=== PATIENT | female | born 1975 | race Caucasian/White ===

== ENCOUNTER → 2016-09-18 | Outpatient (CLI) | payer OTHER | LOC: BMCIMAGING 09:26 | PROVIDERS: ATTEND Internal Medicine Rheumatology | DX: Z13.820 Encounter for screening for osteoporosis (principal); Z79.52 Long term (current) use of systemic steroids ==

== ENCOUNTER 2016-12-30 18:05 | Emergency (ER) | payer OTHER ==
[2016-12-30 18:20] VITALS: TEMP 98.6
[2016-12-30 19:01] LABS: % IMMATURE GRANULYOCYTES 0.2 % (0.0-1.1); ABSOLUTE IMMATURE GRANULOCYTES 0.02 10^3/uL (0.00-0.10); ADD DIFF? NO; ADD MORPH? NO; ADD SCAN? NO; ATYPICAL LYMPHOCYTE FLAG 20 (0-99); FRAGMENT RBC FLAG 0 (0-99); HEMATOCRIT 43.1 % (38.0-47.0); HEMOGLOBIN 14.6 g/dL (12.6-16.3); LEFT SHIFT FLG 0 (0-99); LIPEMIA HEMOLYSIS FLAG 90 (0-99); MEAN CELL HEMOGLOBIN 32.7 pg (27.9-34.1); MEAN CELL HEMOGLOBIN CONCENTR. 33.9 g/dL (32.4-36.7); MEAN CELL VOLUME 96.4 fL (81.5-99.8); PLATELET CLUMPS FLAG 0 (0-99); PLATELET COUNT 183 10^3/uL (150-400); RED BLOOD CELL COUNT 4.47 10^6/uL (4.18-5.33); RED CELL DISTRIBUTION WIDTH 13.2 % (11.5-15.2)
--- NOTE | 2016-12-30 19:15 | EDPHY ---
HPI/HX/ROS/PE/MDM Narrative: CHIEF COMPLAINT: Increased anxiety and depression HPI: The patient is a 41-year-old female who complains of worsening anxiety and depression. The patient gave 22 months ago. Since giving the patient has been struggling with post- depression and has been seeing a post- wellness therapist for this. She has a history of autoimmune disease and feels more fatigued and nauseous. She is concerned her hormones and electrolytes are abnormal. She believes her symptoms are due to increased anxiety and depression. She believes she is declining mentally. The patient saw [facility] 3 days ago and did not feel she received adequate help. She slept at a hotel last night because she was upset with her . She recently started weening herself off of Tramadol to start Valium. She has not been able to see a psychiatrist. She has no suicidal plan. REVIEW OF SYSTEMS: Aside from elements discussed in the HPI, a comprehensive 10-point review of systems was reviewed and is negative. PMH: Anxiety, Depression, Lupus. SOCIAL HISTORY: , gave 22 months ago. PHYSICAL EXAM: General: Patient is alert, in no acute distress. ENT: Eyes are normal to inspection. ENT inspection normal. Neck: Normal inspection. Full range of motion. Respiratory: No respiratory distress. Breath sounds normal bilaterally. Cardiovascular: Regular rate and rhythm. Strong peripheral pulses. Abdomen: The abdomen is nontender to palpation. There are no peritoneal signs. There are normal bowel sounds. Back: Normal to inspection. No tenderness to palpation. Skin: Normal color. No rash. Warm and dry. Extremities: Normal appearance. Full range of motion. Neuro: Oriented x3. Normal motor function. Normal sensory function. Psych: Pressured speech. (Godwin Harmon) ED Course: Lab work is essentially unremarkable. Patient is awaiting mental health evaluation. (Godwin Harmon) MDM: Patient's care transferred to [place] at 9:30 p.m.. 9:50 p.m. the patient has been evaluated and is safe for discharge. She feels much more calm and relaxed after resting. She denies suicidality. Her psychiatrist Dr. Gamez will follow up with her tomorrow and is requesting that we give her dose of Prozac tonight. (Jimbo Valentin) - Data Points Laboratory Results: Laboratory Results 12/30/16 18:55 12/30/16 18:55 12/30/16 12/30/16 12/30/16 18:55 18:55 18:55 WBC RBC Hgb Hct MCV MCH MCHC RDW Plt Count MPV Neut % (Auto) Lymph % (Auto) [place] % (Auto) Eos % (Auto) Baso % (Auto) Nucleat RBC Rel Count Absolute Neuts (auto) Absolute Lymphs (auto) Absolute Monos (auto) Absolute Eos (auto) Absolute Basos (auto) Absolute Nucleated RBC Immature Gran % Immature Gran # Sodium 139 mEq/L mEq/L (134-144) Potassium 4.4 mEq/L mEq/L (3.5-5.2) Chloride 107 mEq/L mEq/L (97-110) Carbon Dioxide 22 mEq/l mEq/l (22-31) Anion Gap 10 mEq/L mEq/L (8-16) BUN 17 mg/dL mg/dL (7-23) Creatinine 0.8 mg/dL mg/dL (0.6-1.0) Estimated GFR > 60 Glucose 100 mg/dL mg/dL (70-100) Calcium 10.1 mg/dL mg/dL (8.5-10.4) Beta HCG, Qual NEGATIVE Urine Opiates Screen NEGATIVE (NEGATIVE) Urine Barbiturates NEGATIVE (NEGATIVE) Ur Phencyclidine Scrn NEGATIVE (NEGATIVE) Ur Amphetamine Screen NEGATIVE (NEGATIVE) U Benzodiazepines Scrn NON-NEGATIVE H (NEGATIVE) Urine Cocaine Screen NEGATIVE (NEGATIVE) U Marijuana (THC) Screen NEGATIVE (NEGATIVE) 12/30/16 18:55 WBC 8.28 10^3/uL 10^3/uL (3.80-9.50) RBC 4.47 10^6/uL 10^6/uL (4.18-5.33) Hgb 14.6 g/dL g/dL (12.6-16.3) Hct 43.1 % % (38.0-47.0) MCV 96.4 fL fL (81.5-99.8) MCH 32.7 pg pg (27.9-34.1) MCHC 33.9 g/dL g/dL (32.4-36.7) RDW 13.2 % % (11.5-15.2) Plt Count 183 10^3/uL 10^3/uL (150-400) MPV 11.0 fL fL (8.7-11.7) Neut % (Auto) 62.2 % % (39.3-74.2) Lymph % (Auto) 30.0 % % (15.0-45.0) [place] % (Auto) 7.0 % % (4.5-13.0) Eos % (Auto) 0.1 % L % (0.6-7.6) Baso % (Auto) 0.5 % % (0.3-1.7) Nucleat RBC Rel Count 0.0 % % (0.0-0.2) Absolute Neuts (auto) 5.15 10^3/uL 10^3/uL (1.70-6.50) Absolute Lymphs (auto) 2.48 10^3/uL 10^3/uL (1.00-3.00) Absolute Monos (auto) 0.58 10^3/uL 10^3/uL (0.30-0.80) Absolute Eos (auto) 0.01 10^3/uL L 10^3/uL (0.03-0.40) Absolute Basos (auto) 0.04 10^3/uL 10^3/uL (0.02-0.10) Absolute Nucleated RBC 0.00 10^3/uL 10^3/uL (0-0.01) Immature Gran % 0.2 % % (0.0-1.1) Immature Gran # 0.02 10^3/uL 10^3/uL (0.00-0.10) Sodium Potassium Chloride Carbon Dioxide Anion Gap BUN Creatinine Estimated GFR Glucose Calcium Beta HCG, Qual Urine Opiates Screen Urine Barbiturates Ur Phencyclidine Scrn Ur Amphetamine Screen U Benzodiazepines Scrn Urine Cocaine Screen U Marijuana (THC) Screen Medications Given: Discontinued Medications Fluoxetine HCl (Prozac) 20 mg PO EDNOW ONE Stop: 12/30/16 22:31 Last Admin: 12/30/16 22:13 Dose: 20 mg General Time Seen by Provider: 12/30/16 18:43 Initial Vital Signs: Initial Vital Signs Temperature (C) 37 C 12/30/16 18:10 Heart Rate 100 12/30/16 18:10 Respiratory Rate 22 H 12/30/16 18:10 Blood Pressure 127/95 H 12/30/16 18:10 O2 Sat (%) 98 12/30/16 18:10 O2 Delivery Mode Room Air Allergies/Adverse Reactions: Sulfa (Sulfonamide Antibiotics) Allergy (Severe, Verified 12/30/16 18:13) throat swells Home Medications: Medication Instructions Recorded Diazepam [Valium 10 MG (*)] 10 mg PO DAILY 12/30/16 Hydrocortisone 20 mg PO 12/30/16 traMADol [Ultram 50 mg (*)] 50 mg PO 12/30/16 Departure - Departure Disposition: Home, Routine, Self-Care Clinical Impression: depression Condition: Fair Instructions: Depression (ED) Additional Instructions: Follow-up with your psychiatrist Preet Gamez as discussed. Referrals: Adwoa Parada MD [Primary Care Provider] - As per Instructions Report Scribed for: Godwin Harmon Report Scribed by: Amita Ramirez Date of Report: 12/30/16 Time of Report: 19:15 Physician Review and Approval Statement: Portions of this note were transcribed by a medical director/head team physician. I personally performed the history, physical exam, and medical decision-making; and confirmed the accuracy of the information in the transcribed note.
[2016-12-30 19:16] LABS: ANION GAP 10 mEq/L (8-16); CALCIUM 10.1 mg/dL (8.5-10.4); CARBON DIOXIDE 22 mEq/l (22-31); CHLORIDE 107 mEq/L (97-110); CREATININE 0.8 mg/dL (0.6-1.0); GLOMERULAR FILTRATION RATE > 60; GLUCOSE 100 mg/dL (70-100); POTASSIUM 4.4 mEq/L (3.5-5.2); SODIUM 139 mEq/L (134-144)
[2016-12-30] MEDS ORDERED: FLUoxetine 20 MG CAP PO SCH (22:00)
[2016-12-30 22:14] VITALS: BP 112/64; PULSE 89; RESP 14; O2SAT 96
[2016-12-30] MEDS ORDERED: FLUoxetine 20 MG CAP PO ONE (22:30)
== END 2016-12-30 22:14 | disposition home or self-care (01) ==
DX: F53 Mental and behavioral disorders associated with the puerperium, not elsewhere classified (principal)
CPT/HCPCS: 80305